=== PATIENT | male | born 1965 | race Caucasian/White ===

== ENCOUNTER 2020-04-14 09:12 | Emergency (ER) | payer BC ==
[2020-04-14] MEDS ORDERED: Sodium Chloride 0.9% 10 ML Syringe FLUSH PRN (09:23)
--- NOTE | 2020-04-14 09:31 | EDM.PDOC ---
ED HPI GENERAL MEDICAL PROBLEM - General Chief Complaint: Respiratory Problem Stated Complaint: sob, chills Time Seen by Provider: 04/14/20 09:12 Source of Information: Reports: Patient History Limitations: Reports: No Limitations - History of Present Illness INITIAL COMMENTS - FREE TEXT/NARRATIVE: Patient comes into the emergency department via EMS with complaints of shortness of breath and chills. Patient states that he began having shortness of breath approximately 1 week ago. He ended up calling the clinic and they suggested a COVID test prior to coming to the clinic. He completed the COVID test and the results came back earlier this morning. Patient states that he has been intermittently Short of breath especially when ambulating any sort of distance or trying to lie flat. However he states this morning while he was resting he could not catch his breath. He also states that any sort of ambulation further exacerbated his short of breath. Patient states he was not able to complete a full sentence. Patient does have a history of asthma does not take a rescue inhaler but does use a daily Spiriva. Patient states he has had night chills, and night sweats. Patient does state that he does have a history of anxiety however the symptoms he is experiencing does not feel like his normal anxiety concerns.He states that he is feeling a bit more anxious however he relates that to not being able to catch his breath.Patient denies Dizziness, blurred vision, chest pain, GI upset, concerns, or peripheral edema.Patient has been limiting his exposure to the general public and states he has been self isolating since taking the COVID test. EMS report that the patient's oxygen saturation was 89 to 90% without oxygen they have applied 2 L nasal cannula and his oxygen saturation went greater than 95. Onset: Gradual Improves with: Reports: Rest (sitting up ) Worsens with: Reports: Movement Associated Symptoms: Reports: No Other Symptoms - Related Data Allergies Allergy/AdvReac Type Severity Reaction Status Date / Time No Known Allergies Allergy Verified 04/14/20 09:43 Home Meds: Home Meds ALPRAZolam [Xanax] 0.5 mg PO Q8H PRN 01/01/16 [History] Albuterol Sulfate [Proair Hfa] 2 puff PO Q4HR PRN 01/01/16 [History] C/Sourcherry/Celery/Grape Seed [Tart Lazo] 1 cap PO BID 01/01/16 [History] Fish Oil/[place]-3 Fatty Acids [Fish Oil 1,000 MG] 1,000 mg PO BID 01/01/16 [History] Fluticasone Propionate [Flonase] 2 spray NASBOTH BID 01/01/16 [History] Multivitamin [Multivitamins] 1 tab PO DAILY 01/01/16 [History] Naproxen Sodium [Aleve] 220 mg PO BID PRN 01/01/16 [History] Propranolol [Inderal LA] 80 mg PO DAILY 01/01/16 [History] SUMAtriptan succinate [Imitrex] 100 mg PO ASDIRECTED PRN 01/01/16 [History] Venlafaxine [Effexor XR] 37.5 mg PO DAILY 01/01/16 [History] Fenofibrate Nanocrystallized [Fenofibrate] 145 mg PO DAILY 04/14/20 [History] Furosemide [Lasix] 10 mg PO DAILY #3 tab 04/14/20 [Rx] Furosemide [Lasix] 20 mg PO DAILY PRN 04/14/20 [History] Montelukast [Singulair] 10 mg PO DAILY 04/14/20 [History] lisinopriL [Lisinopril] 5 mg PO DAILY 04/14/20 [History] predniSONE [Prednisone] 10 mg PO DAILY 5 Days #5 tab.ds.pk 04/14/20 [Rx] Past Medical History HEENT History: Reports: Other (See Below) Other HEENT History: PERICHONDRITIS OF PINNA Cardiovascular History: Reports: None Respiratory History: Reports: Asthma Gastrointestinal History: Reports: Hemorrhoids, Other (See Below) Other Gastrointestinal History: RECTAL BLEEDING Genitourinary History: Reports: Renal Calculus Musculoskeletal History: Reports: Gout, Other (See Below) Other Musculoskeletal History: LUMBAGO Neurological History: Reports: Migraines Psychiatric History: Reports: Anxiety Endocrine/Metabolic History: Reports: None Hematologic History: Reports: Other (See Below) Other Hematologic History: HYPERGLYCERIDEMIA Immunologic History: Reports: None Oncologic (Cancer) History: Reports: None Dermatologic History: Reports: None - Past Surgical History Female Surgical History: ED ROS GENERAL - Review of Systems Review Of Systems: Comprehensive ROS is negative, except as noted in HPI. Constitutional: Reports: Chills, Malaise, Night Sweats HEENT: Reports: No Symptoms Respiratory: Reports: Shortness of Breath. Denies: Cough, Sputum Cardiovascular: Reports: No Symptoms Endocrine: Reports: No Symptoms GI/Abdominal: Reports: No Symptoms : Reports: No Symptoms Musculoskeletal: Reports: No Symptoms Skin: Reports: No Symptoms Neurological: Reports: No Symptoms Psychiatric: Reports: Anxiety Hematologic/Lymphatic: Reports: No Symptoms Immunologic: Reports: No Symptoms ED EXAM, GENERAL - Physical Exam Exam: See Below Exam Limited By: No Limitations General Appearance: Alert, WD/WN, No Apparent Distress Eye Exam: Bilateral Eye: EOMI, PERRL Throat/Mouth: Normal Inspection, Normal Lips, Normal Teeth, No Airway Compromise Head: Atraumatic, Normocephalic Neck: Normal Inspection, Supple, Non-Tender, Full Range of Motion Respiratory/Chest: No Respiratory Distress, Chest Non-Tender, Decreased Breath Sounds, Accessory Muscle Use Cardiovascular: Normal Peripheral Pulses, Tachycardia Peripheral Pulses: 4+: Radial (L), Radial (R), Dorsalis Pedis (L), Dorsalis Pedis (R) GI/Abdominal: Normal Bowel Sounds, Soft, Non-Tender, No Abnormal Bruit Extremities: Normal Inspection, Normal Range of Motion, Non-Tender, No Pedal Edema, Normal Capillary Refill Neurological: Alert, Oriented, CN II-XII Intact, Normal Cognition Psychiatric: Normal Affect, Normal Mood Skin Exam: Warm, Dry, Intact, Normal Color Course - Vital Signs Last Recorded V/S: Last Vital Signs Temp 36.4 C 04/14/20 09:12 Pulse 127 H 04/14/20 09:12 Resp 24 H 04/14/20 09:12 BP 133/76 04/14/20 09:12 Pulse Ox 96 04/14/20 09:12 - Orders/Labs/Meds Orders: Active Orders 24 hr Category Date Time Status EKG Documentation Completion [RC] STAT Care 04/14/20 09:24 Active RT Aerosol Therapy [RC] ASDIRECTED Care 04/14/20 09:24 Active CULTURE BLOOD [BC] Stat Lab 04/14/20 09:30 Received CULTURE BLOOD [BC] Stat Lab 04/14/20 09:30 Received Sodium Chloride 0.9% [Saline Flush] Med 04/14/20 09:23 Active 10 ml FLUSH ASDIRECTED PRN Blood Culture x2 Reflex Set [OM.PC] Stat Oth 04/14/20 09:24 Ordered Peripheral IV Insertion Adult [OM.PC] Stat Oth 04/14/20 09:23 Ordered Medication Orders Sodium Chloride (Saline Flush) 10 ml FLUSH ASDIRECTED PRN PRN Reason: Keep Vein Open Labs: Laboratory Tests 04/14/20 04/14/20 04/14/20 Range/Units 09:30 09:30 09:30 WBC 8.7 (4.0-10.0) x10^3/uL RBC 4.81 (4.5-6.0) x10^6/uL Hgb 15.8 (14.0-18.0) g/dL Hct 44.4 (40.0-52.0) % MCV 92.3 (78.0-93.0) fL MCH 32.8 H (26.0-32.0) pg MCHC 35.6 (32.0-36.0) g/dL RDW Coeff of Veronika 12.9 (10.0-15.0) % Plt Count 196 (130-400) x10^3/uL Add Manual Diff Yes Neutrophils % (Manual) 65 (50-80) % Band Neutrophils % 1 (0-6) % Lymphocytes % (Manual) 26 (25-50) % Monocytes % (Manual) 8 (2-11) % Platelet Estimate Adequate Sodium 136 (136-145) mmol/L Potassium 4.2 (3.5-5.1) mmol/L Chloride 101 (98-107) mmol/L Carbon Dioxide 21 (21-32) mmol/L Anion Gap 18.2 (10-20) mmol/L BUN 26 H (7-18) mg/dL Creatinine 1.9 H (0.70-1.30) mg/dL Est Cr Clr Drug Dosing TNP Estimated GFR (MDRD) 37 Glucose 127 H (74-106) mg/dL Lactic Acid 1.9 (0.4-2.0) mmol/L Calcium 9.5 (8.5-10.1) mg/dL Corrected Calcium 9.50 (8.5-10.1) mg/dL Total Bilirubin 0.7 (0.2-1.0) mg/dL AST 20 (15-37) U/L ALT 26 (16-63) U/L Alkaline Phosphatase 54 (46-116) U/L Troponin I 0.048 (<=0.056) ng/mL NT-Pro-B Natriuret Pep 6899 H (<=125) pg/mL Total Protein 8.3 H (6.4-8.2) g/dL Albumin 4.0 (3.4-5.0) g/dL Globulin 4.3 Albumin/Globulin Ratio 0.93 Meds: Medications Generic Name Dose Route Start Last Admin Trade Name Freq PRN Reason Stop Dose Admin Sodium Chloride 10 ml 04/14/20 09:23 Saline Flush FLUSH ASDIRECTED PRN Keep Vein Open Discontinued Medications Generic Name Dose Route Start Last Admin Trade Name Freq PRN Reason Stop Dose Admin Albuterol/Ipratropium 3 ml 04/14/20 09:24 04/14/20 09:59 Duoneb 3.0-0.5 Mg/3 Ml NEB 04/14/20 09:25 3 ml ONETIME ONE Administration Ceftriaxone Sodium 1 gm 04/14/20 09:25 04/14/20 09:56 Rocephin IVPUSH 04/14/20 09:26 1 gm ONETIME ONE Administration Furosemide 20 mg 04/14/20 10:41 Lasix IV 04/14/20 10:42 ONETIME ONE Methylprednisolone Sodium Succinate 125 mg 04/14/20 09:25 04/14/20 09:53 Solu-Medrol IVPUSH 04/14/20 09:26 125 mg ONETIME ONE Administration - Re-Assessments/Exams Free Text/Narrative Re-Assessment/Exam: 04/14/20 10:49 lung sounds clear after breathing treatment. Patient feels back to his baseline. Would like to be discharged Departure - Departure Time of Disposition: 10:45 Disposition: Home, Self-Care 01 Condition: Good Clinical Impression: Acute asthma Fluid overload Qualifiers: Hypervolemia type: other Qualified Code(s): E87.79 - Other fluid overload - Discharge Information *PRESCRIPTION DRUG MONITORING PROGRAM REVIEWED*: Not Applicable *COPY OF PRESCRIPTION DRUG MONITORING REPORT IN PATIENT FOUZIA: Not Applicable Prescriptions: Furosemide [Lasix] 10 mg PO DAILY #3 tab predniSONE [Prednisone] 10 mg PO DAILY 5 Days #5 tab.ds.pk Instructions: Asthma, Adult, Shortness of Breath, Adult, [id number], Pulmonary Edema, [id number] Forms: ED Department Discharge Additional Instructions: 1. rest 2. take 3 days of Lasix to help with the fluid overload 3. Take prednisone to help with SOB related to asthma 3. Need to follow up on friday for further workup and evaluation of fluid overload 4. Continue all at home medications 5. Activity and diet as tolerated 6. Can take over the counter Tylenol for any pain or discomfort 7. Follow up with PCP if symptoms continue, return, or progress 8. Call with any questions or concerns Sepsis Event Note (ED) - Focused Exam Vital Signs: Vital Signs Temp Pulse Resp BP Pulse Ox 04/14/20 09:12 36.4 C 127 H 24 H 133/76 96 - My Orders Last 24 Hours: My Active Orders 04/14/20 09:23 Sodium Chloride 0.9% [Saline Flush] 10 ml FLUSH ASDIRECTED PRN Peripheral IV Insertion Adult [OM.PC] Stat 04/14/20 09:24 EKG Documentation Completion [RC] STAT RT Aerosol Therapy [RC] ASDIRECTED Blood Culture x2 Reflex Set [OM.PC] Stat 04/14/20 09:30 CULTURE BLOOD [BC] Stat CULTURE BLOOD [BC] Stat - Assessment/Plan Last 24 Hours: My Active Orders 04/14/20 09:23 Sodium Chloride 0.9% [Saline Flush] 10 ml FLUSH ASDIRECTED PRN Peripheral IV Insertion Adult [OM.PC] Stat 04/14/20 09:24 EKG Documentation Completion [RC] STAT RT Aerosol Therapy [RC] ASDIRECTED Blood Culture x2 Reflex Set [OM.PC] Stat 04/14/20 09:30 CULTURE BLOOD [BC] Stat CULTURE BLOOD [BC] Stat Assessment:: 1. fluid overload 2. acute asthma flare Plan: 1. Sepsis protocol initiated and followed 2. Labs completed in the ER. Results reviewed with the patient 3. Blood cultures completed 4. IV initiated in the emergency department 5. IV fluids provided 6. EKG completed in ER. 7. Rocephin 1gm given 8. Duo neb completed in the ER 9. Solumedrol 125mg IV given in the ER 10. Chest xray completed in the ER. 11. Lasix 20mg IV given in ER for fluid overload 12. Scripts of prednisone and lasix sent 13. Patient and nursing staff was updated regarding the plan of care 14. Patient and family are agreeable to the above plan of care 15. All questions and concerns were addressed with the patient and family prior to discharge
[2020-04-14] MEDS: methylPREDNISolone Sodium Succinate 125 MG/2 ML SDV IVPUSH ONE (09:53)
[2020-04-14] MEDS: cefTRIAXone 1 GM Vial IVPUSH ONE (09:56)
[2020-04-14] MEDS: Albuterol/Ipratropium 3.0-0.5 MG/3 ML Neb Soln NEB ONE (09:59)
--- NOTE | 2020-04-14 10:09 | CR ---
[id number] RAD/RAD Chest PA or AP 1V EXAM: SINGLE VIEW CHEST. INDICATION: SHORTNESS OF BREATH COMPARISON: NO PREVIOUS SIMILAR EXAM IS AVAILABLE FINDINGS: The lungs are clear The cardiac silhouette is mildly prominent IMPRESSION: NO PNEUMONIA. John Choe MD 04/14/20 [id number] Thank you for allowing us to participate in the care of your patient.
[2020-04-14 10:15] LABS: CHLORIDE,CL 101 mmol/L (98-107); SODIUM,NA 136 mmol/L (136-145)
[2020-04-14 10:22] LABS: ANION GAP 18.2 mmol/L (10-20)
[2020-04-14] MEDS: Furosemide 20 MG/2 ML VIAL IV ONE (10:47)
[2020-04-14 10:51] VITALS: BP 127/76; PULSE 112
== END 2020-04-14 11:11 | disposition home or self-care (01) ==
LOC: VM.ED 09:12
DX: J45.909 Unspecified asthma, uncomplicated (principal); E87.79 Other fluid overload; F41.9 Anxiety disorder, unspecified; R00.0 Tachycardia, unspecified; Z79.899 Other long term (current) drug therapy
CPT/HCPCS: 36415; 71045; 80053; 83605; 83880; 84484; 85025; 87040; 93005; 94640; 96374; 96375; 99284; 99285-25; J0696; J1940; J2930; J7620-GY

== ENCOUNTER 2020-04-15 14:22 | Emergency (ER) | payer BC ==
[2020-04-15] MEDS ORDERED: EPINEPHrine 1:10,000 1 MG/10 ML Syringe ONE ×5 (14:28→15:02)
[2020-04-15] MEDS ORDERED: Sodium Bicarbonate 8.4% 50 MEQ/50 ML Syringe ONE (14:28)
--- NOTE | 2020-04-15 15:01 | EDM.PDOC ---
ED HPI GENERAL MEDICAL PROBLEM - General Chief Complaint: General Stated Complaint: code blue Time Seen by Provider: 04/15/20 14:22 Source of Information: Reports: EMS, EMS Notes Reviewed, Family - History of Present Illness INITIAL COMMENTS - FREE TEXT/NARRATIVE: Patient comes into the emergency department via EMS with complaint of cardiac arrest in progress. Patient's had contacted 911 after patient had told her he felt something was wrong and he was extremely short of breath. He requested his oxygen for he uses oxygen at night. The states when she came back with the oxygen he was Extremely short of breath was not answering questions appropriately. When she checked his pulse he did not have a sustainable pulse. chief service dispatcher is instructed the to start CPR. CPR was in progress immediately until EMS arrived. EMS was able to intubate was not able to secure an IV site. Patient was brought into the emergency department.Patient was seen yesterday in the emergency room for shortness of breath and chills. Patient was diagnosed with exacerbation of CHF. After neb treatments, steroid and medical work-up. Patient felt much better and requested discharge.Was to increase his Lasix according to the documentation through the weekend and follow-up with his primary care provider or return to the emergency department if symptoms progress or worsen. states that the patient stated he felt better than he did yesterday when he came to the emergency room however as stated above he had a sudden extreme episode of shortness of breath just prior to going into cardiac arrest.Completed with negative findings resulted yesterday morning. Patient also had a COVID-19 tests labs according to the documentation yesterday were within normal limits other than a proBNP was was 6,000s. cannot think of any other Contributory events leading up to the sudden cardiac arrest. Onset: Sudden Improves with: Reports: None Worsens with: Reports: None Context: Reports: Other Associated Symptoms: Reports: No Other Symptoms - Related Data Allergies Allergy/AdvReac Type Severity Reaction Status Date / Time No Known Allergies Allergy Verified 04/14/20 09:43 Home Meds: Home Meds ALPRAZolam [Xanax] 0.5 mg PO Q8H PRN 01/01/16 [History] Albuterol Sulfate [Proair Hfa] 2 puff PO Q4HR PRN 01/01/16 [History] C/Sourcherry/Celery/Grape Seed [Tart Lazo] 1 cap PO BID 01/01/16 [History] Fish Oil/[place]-3 Fatty Acids [Fish Oil 1,000 MG] 1,000 mg PO BID 01/01/16 [History] Fluticasone Propionate [Flonase] 2 spray NASBOTH BID 01/01/16 [History] Multivitamin [Multivitamins] 1 tab PO DAILY 01/01/16 [History] Naproxen Sodium [Aleve] 220 mg PO BID PRN 01/01/16 [History] Propranolol [Inderal LA] 80 mg PO DAILY 01/01/16 [History] SUMAtriptan succinate [Imitrex] 100 mg PO ASDIRECTED PRN 01/01/16 [History] Venlafaxine [Effexor XR] 37.5 mg PO DAILY 01/01/16 [History] Fenofibrate Nanocrystallized [Fenofibrate] 145 mg PO DAILY 04/14/20 [History] Furosemide [Lasix] 10 mg PO DAILY #3 tab 04/14/20 [Rx] Furosemide [Lasix] 20 mg PO DAILY PRN 04/14/20 [History] Montelukast [Singulair] 10 mg PO DAILY 04/14/20 [History] lisinopriL [Lisinopril] 5 mg PO DAILY 04/14/20 [History] predniSONE [Prednisone] 10 mg PO DAILY 5 Days #5 tab.ds.pk 04/14/20 [Rx] Past Medical History HEENT History: Reports: Other (See Below) Other HEENT History: PERICHONDRITIS OF PINNA Cardiovascular History: Reports: None Respiratory History: Reports: Asthma Gastrointestinal History: Reports: Hemorrhoids, Other (See Below) Other Gastrointestinal History: RECTAL BLEEDING Genitourinary History: Reports: Renal Calculus Musculoskeletal History: Reports: Gout, Other (See Below) Other Musculoskeletal History: LUMBAGO Neurological History: Reports: Migraines Psychiatric History: Reports: Anxiety Endocrine/Metabolic History: Reports: None Hematologic History: Reports: Other (See Below) Other Hematologic History: HYPERGLYCERIDEMIA Immunologic History: Reports: None Oncologic (Cancer) History: Reports: None Dermatologic History: Reports: None - Past Surgical History Female Surgical History: ED ROS GENERAL - Review of Systems Review Of Systems: Unable To Obtain Reason Not Obtained: cpr in progress ED EXAM, GENERAL - Physical Exam Exam: See Below Exam Limited By: Other Eye Exam: Bilateral Eye: Other (dilated fixed pupils) Respiratory/Chest: Crackles, Rales, Other (large amount of fluid in upper airway noted. forthy putum noted and large amounts of food particles noted as well) Cardiovascular: No: Other (Asystole noted on the monitor without CPR. CPR noted a rate of greater than 100) GI/Abdominal: Non-Tender, No Distention Skin Exam: Other (purple apprearance from nipples up. mottled skin ) Course - Orders/Labs/Meds Labs: Laboratory Tests 04/15/20 04/15/20 04/15/20 Range/Units 14:37 14:37 14:59 WBC 16.1 H (4.0-10.0) x10^3/uL RBC 4.52 (4.5-6.0) x10^6/uL Hgb 14.9 (14.0-18.0) g/dL Hct 44.9 (40.0-52.0) % MCV 99.3 H D (78.0-93.0) fL MCH 33.0 H (26.0-32.0) pg MCHC 33.2 (32.0-36.0) g/dL RDW Coeff of Veronika 14.7 (10.0-15.0) % Plt Count 183 (130-400) x10^3/uL Add Manual Diff Yes Neutrophils % (Manual) 65 (50-80) % Band Neutrophils % 2 (0-6) % Lymphocytes % (Manual) 19 L (25-50) % Monocytes % (Manual) 13 H (2-11) % Eosinophils % (Manual) 1 (0-4) % Platelet Estimate Adequate Giant Platelets Occasional H Anisocytosis 1+ slight H Sodium 136 (136-145) mmol/L Potassium 5.5 H (3.5-5.1) mmol/L Chloride 101 (98-107) mmol/L Carbon Dioxide 13 L (21-32) mmol/L Anion Gap 27.5 H (10-20) mmol/L BUN 32 H (7-18) mg/dL Creatinine 2.0 H (0.70-1.30) mg/dL Est Cr Clr Drug Dosing TNP Estimated GFR (MDRD) 35 Glucose 154 H (74-106) mg/dL Calcium 9.8 (8.5-10.1) mg/dL POC Troponin I 0.00 (0.00-0.08) ng/mL Meds: Medications Discontinued Medications Generic Name Dose Route Start Last Admin Trade Name Felicitas PRN Reason Stop Dose Admin Epinephrine HCl Confirm 04/15/20 15:02 Epinephrine 1:10,000 Administered 04/15/20 15:03 Dose 4 mg .ROUTE .STK-MED ONE Departure - Departure Time of Disposition: 14:45 Disposition: 20 Clinical Impression: Flash pulmonary edema, CHF, Congestive heart failure - Discharge Information *PRESCRIPTION DRUG MONITORING PROGRAM REVIEWED*: Not Applicable *COPY OF PRESCRIPTION DRUG MONITORING REPORT IN PATIENT FOUZIA: Not Applicable Referrals: PCP,None [Primary Care Provider] - Forms: ED Department Discharge - Assessment/Plan Assessment:: 1. flash pulmonary edema 2. Sudden cardiac arrest Plan: Upon arrival to the emergency department CPR was continued with the Holden device. ET tube placement was evaluated. Lung sounds heard bilaterally over the the lung devi. EMS was uncertain due to hearing a large amount of fluid in the lungs. A manual visualization was completed and Vocal cords with endotracheal tube noted within the trachea. ET tube was pulled black 1.5 cm. Lung sounds significantly muffled due to fluid however could be heard bilaterally. No epigastrium sounds were noted. Abdominal cavity soft nondistended. ACLS guidelines were followed. Nursing and EMS were unable to secure IV access. IO access was initiated and epinephrine was given every 3 to 4 minutes per ACLS guidelines. Bicarb 1 amp was also provided to the patient during the resuscitation efforts. Please see CODE BLUE for further time and delineation of medication administration and pulse checks. All H's and T's were evaluated for any other etiology and possible causes of . Once the arrival of his she was brought to the bedside report was provided to the . She requested we cease efforts. was present at the bedside when time of was called. Time of was called at 1445 PM. No autopsy is required for the patient sustained a sudden cardiac arrest with family present. Family does not wish to have an autopsy performed at this time.
[2020-04-15 15:13] LABS: ANION GAP 27.5 mmol/L (10-20); CHLORIDE,CL 101 mmol/L (98-107); SODIUM,NA 136 mmol/L (136-145)
== END 2020-04-15 14:45 | disposition expired ==
LOC: VM.ED 14:22
DX: I46.9 Cardiac arrest, cause unspecified (principal); I50.1 Left ventricular failure, unspecified; J45.909 Unspecified asthma, uncomplicated; F41.9 Anxiety disorder, unspecified; G43.909 Migraine, unspecified, not intractable, without status migrainosus; Z79.899 Other long term (current) drug therapy
CPT/HCPCS: 31500; 36415; 80048; 84484; 85025; 92950; 99284; 99285; J0171